=== PATIENT | male | born 1970 | race Caucasian/White ===

== ENCOUNTER 2019-03-03 11:22 | Emergency (ER) | payer BC, OTHER ==
[2019-03-03] MEDS: KETOROLAC 30 MG INJ IM (12:41)
[2019-03-03] MEDS: CEFTRIAXONE 1 GM INJ IM (14:26)
== END 2019-03-03 14:12 | disposition home or self-care (01) ==
LOC: E/R 14:12
DX: N20.0 Calculus of kidney (principal)
CPT/HCPCS: 81001; 96372; 99284-25